=== PATIENT | male | born 1970 | race African-American/Black ===

== ENCOUNTER 2022-08-01 10:59 | Emergency (ER) | payer BC ==
[2022-08-01] MEDS ORDERED: Ketorolac Tromethamine 30 MG/ML VIAL ONE (11:28)
== END 2022-08-01 12:10 | disposition home or self-care (01) ==
LOC: CSHERS 10:59
DX: S40.021A Contusion of right upper arm, initial encounter (principal); E78.5 Hyperlipidemia, unspecified; I10 Essential (primary) hypertension; W18.30XA Fall on same level, unspecified, initial encounter
CPT/HCPCS: 96372; J1885